=== PATIENT | male | born 1935 | race Caucasian/White ===

== ENCOUNTER 2018-06-04 22:02 | Emergency (ER) | payer MEDICARE ==
--- NOTE | 2018-06-04 22:47 | ER Document Report ---
ED General - General Chief Complaint: Weakness Stated Complaint: ALTERED MENTAL STATUS Time Seen by Provider: 06/04/18 22:06 Primary Care Provider: CARINA HOLDER MD [Primary Care Provider] - Follow up as needed Cannot obtain history due to: Dementia Notes: Patient is an 83-year-old male past medical history dementia, pattern of aggressive behaviors, debility at baseline, hypertension, presents by EMS due to becoming aggressive with staff at [facility]. EMS states the patient has been calm and cooperative in route to the hospital. Apparently the patient's family is requesting that the patient not be given any medications for sedation as they feel that when he gets benzodiazepines in particular it seems to make him very sedated followed by periods of extreme agitation. The patient himself denies any complaints. Unable to provide any meaningful history secondary to baseline mental status. EMS does report that he is acting at his reported baseline. TRAVEL OUTSIDE OF THE [place] IN LAST 30 DAYS: No Past Medical History - General Information source: Emergency Med Personnel Cannot obtain history due to: Dementia - Social History Smoking Status: Former Smoker Frequency of alcohol use: None Drug Abuse: None Lives with: [facility] Family History: Reviewed & Not Pertinent Patient has suicidal ideation: No Patient has homicidal ideation: No Renal/ Medical History: Denies: Hx Peritoneal Dialysis Review of Systems - Review of Systems Notes: Constitutional: Negative for fever. HENT: Negative for sore throat. Eyes: Negative for visual changes. Cardiovascular: Negative for chest pain. Respiratory: Negative for shortness of breath. Gastrointestinal: Negative for abdominal pain, vomiting or diarrhea. Genitourinary: Negative for dysuria. Musculoskeletal: Negative for back pain. Skin: Negative for rash. Neurological: Negative for headaches, weakness or numbness. 10 point ROS negative except as marked above and in HPI. Physical Exam - Vital signs Vitals: Resp Pulse Ox 20 93 06/04/18 22:06 06/04/18 22:06 Interpretation: Normal Notes: PHYSICAL EXAMINATION: GENERAL: Somewhat frail elderly man in no acute distress HEAD: Atraumatic, normocephalic. EYES: Pupils equal round and reactive to light, extraocular movements intact, sclera anicteric, conjunctiva are normal. ENT: nares patent, oropharynx clear without exudates. Mildly dry mucous membranes. NECK: Normal range of motion, supple without lymphadenopathy LUNGS: Breath sounds clear to auscultation bilaterally and equal. No wheezes rales or rhonchi. HEART: Regular rate and rhythm without murmurs ABDOMEN: Soft, nontender, normoactive bowel sounds. No guarding, no rebound. No masses appreciated. EXTREMITIES: Normal range of motion, no pitting or edema. No cyanosis. NEUROLOGICAL: No focal neurological deficits. Moves all extremities spontaneously and on command. PSYCH: Alert, oriented to person and place SKIN: Warm, Dry, normal turgor, no rashes or lesions noted. Course - Re-evaluation Re-evalutation: 06/04/18 22:44 Presentation of a overall well-appearing 83-year-old demented man who presents due to agitation and aggressive behavior at his nursing facility. He is calm and cooperative. Denies any complaints. No evidence of trauma on exam. No indication for labs or imaging. Most likely source is that the patient had all medications held based on his family's instructions including benzodiazepines which she had been on quite chronically. He does not demonstrate any overt signs of withdrawal, note cardia or hypertension. No tremulousness. Will be discharged back to his facility - Vital Signs Vital signs: Temp Pulse Resp BP Pulse Ox 98.5 F 79 15 145/81 H 95 06/04/18 23:42 06/04/18 22:09 06/04/18 23:01 06/04/18 23:01 06/04/18 23:01 Discharge - Discharge Clinical Impression: Aggressive behavior Condition: Good Disposition: HOME, SELF-CARE Additional Instructions: Please return the patient if there are any additional concerns. He has been calm and cooperative here. His aggressive behaviors are likely secondary to holding his benzodiazepines which he has been on chronically. Referrals: CARINA HOLDER MD [Primary Care Provider] - Follow up as needed
[2018-06-04 23:09] VITALS: BP 145/81
== END 2018-06-04 23:42 | disposition home or self-care (01) ==
LOC: ER 22:02
DX: F91.8 Other conduct disorders (principal); R53.1 Weakness; R41.82 Altered mental status, unspecified; I10 Essential (primary) hypertension; Z87.891 Personal history of nicotine dependence
CPT/HCPCS: 99285